=== PATIENT | male | born 1960 ===

== ENCOUNTER 2016-12-29 14:38 | Emergency (ER) | payer MEDICARE ==
[2016-12-29 14:59] VITALS: BP 135/81; PULSE 77; RESP 20; TEMP 98.7; O2SAT 99
--- NOTE | 2016-12-29 15:31 | ED PDOC ---
Lower Extremity Pain/Injury Time Seen by Provider: 12/29/16 15:29 Chief Complaint (Nursing): Lower Extremity Problem/Injury Chief Complaint (Provider): Lower Extremity Problem/Injury History Per: Patient History/Exam Limitations: no limitations Onset/Duration Of Symptoms: Days Current Symptoms Are (Timing): Still Present Severity: Mild Additional Complaint(s): Patient is a 56 year old male who presents to ED for right foot pain and swelling for 1 week. Patient states he is concerned about a possible rat bite due to seeing many rats in his living area but denies remembering an actual bite. Denies trauma or direct injury but admits to scratching the area. Past Medical History Reviewed: Historical Data, Nursing Documentation, Vital Signs Vital Signs: Last Vital Signs Temp 98.7 F 12/29/16 14:56 Pulse 77 12/29/16 14:56 Resp 20 12/29/16 14:56 BP 135/81 12/29/16 14:56 Pulse Ox 99 12/29/16 14:56 - Medical History PMH: Depression, Paranoia, Schizophrenia Denies: Diabetes, Hepatitis, HIV, HTN, Seizures, Sexually Transmitted Disease - Surgical History Surgical History: No Surg Hx - Family History Family History: States: Unknown Family Hx - Living Arrangements Living Arrangements: With Family - Home Medications Home Medications: Ambulatory Orders Medication Instructions Recorded Cephalexin [Keflex] 500 mg PO QID #28 capsule 12/29/16 Naproxen [Naprosyn Tab] 1 tab PO Q8 PRN #21 tab 12/29/16 - Allergies Allergies/Adverse Reactions: Allergies Allergy/AdvReac Type Severity Reaction Status Date / Time No Known Allergies Allergy Verified 12/29/16 14:55 Review of Systems Constitutional: Negative for: Weakness Musculoskeletal: Positive for: Foot Pain. Negative for: Neck Pain, Back Pain, Leg Pain Skin: Negative for: Rash, Bruising Neurological: Negative for: Weakness, Numbness Physical Exam - Reviewed Nursing Documentation Reviewed: Yes Vital Signs Reviewed: Yes - Physical Exam Appears: Positive for: Non-toxic, No Acute Distress Skin: Positive for: Normal Color, Warm Eye Exam: Positive for: Normal appearance Neck: Positive for: Normal Pulses-Dorsalis Pedis (R): 2+ Extremity: Positive for: Normal ROM, Tenderness (tenderness with warmth to right lateral dorsum foot, Ankle and 5th MTP non tenderness, no swelling), Capillary Refill (less then 2 seconds). Negative for: Calf Tenderness, Deformity Neurologic/Psych: Positive for: Alert, Oriented. Negative for: Motor/Sensory Deficits - Laboratory Results Result Diagrams: 12/29/16 15:50 - ECG O2 Sat by Pulse Oximetry: 99 (RA) Pulse Ox Interpretation: Normal - Progress ED Course And Treament: FOOT XRY: NO ACUTE INJURY CBC WNL TETANUS UP TO DATE Medical Decision Making Medical Decision Making: Time: 1525 Initial Impression: Foot pain r/o infection vs fracture Initial Plan: -- Foot Xray Discussed today's findings and results with patient. All questions answered and patient expressed understanding. Stable for discharge. Attestation: Documented by Melvi Joshi acting as a scribe for Aleisha Lopez PA-C. Provider Scribe Attestation: All medical record entries made by the Scribe were at my direction and personally dictated by me. I have reviewed the chart and agree that the record accurately reflects my personal performance of the history, physical exam, medical decision making, and the department course for this patient. I have also personally directed, reviewed, and agree with the discharge instructions and disposition. Disposition - Clinical Impression Clinical Impression: Cellulitis - Patient ED Disposition Is Patient to be Admitted: No - Disposition Referrals: [facility] [Outside] [facility] [Outside] Disposition: Routine/Home Disposition Time: 16:25 Condition: FAIR Additional Instructions: SIGA CON CULLEN MEDICO PARA CHEQUAR PIE EN 2 O 3 [place]. Prescriptions: Cephalexin [Keflex] 500 mg PO QID #28 capsule Naproxen [Naprosyn Tab] 1 tab PO Q8 PRN #21 tab PRN Reason: Pain, Moderate (4-7) Instructions: Cellulitis (ED) Print Language: DIVEHI
[2016-12-29 16:07] LABS: BASO % 0.4 % (0.0-2.0); EOS # 0.1 K/uL (0.0-0.7); EOS % 0.5 % (0.0-4.0); LYMPH # 1.4 K/uL (1.0-4.3); LYMPH % 12.7 % (20.0-40.0); MEAN CELL VOLUME 97.3 fl (80.0-94.0); MEAN CORPUSCULAR HEMOGLOBIN 32.2 pg (27.0-31.0); MEAN CORPUSCULAR HGB CONC 33.1 g/dL (33.0-37.0); MEAN PLATELET VOLUME 7.7 fl (7.2-11.7); MONO % 8.9 % (0.0-10.0); NEUT # 8.7 K/uL (1.8-7.0); NEUT % 77.5 % (50.0-75.0); RED CELL DISTRIBUTION WIDTH 13.4 % (11.5-14.5); WHITE BLOOD COUNT 11.1 K/uL (4.8-10.8)
--- NOTE | 2016-12-29 16:38 | RAD ---
PROCEDURE: Right foot 12/29/2016 s. HISTORY: foot pain COMPARISON: None. FINDINGS: BONES: Current study reveals no evidence of acute displaced fracture nor dislocation. The osseous structures intact. No cortical destructive changes. JOINTS: Minimal hallux valgus deformity with slight prominence of the head of the 1st metatarsal and minimal DJD 1st MTP joint SOFT TISSUES: Questionable mild infiltration changes of the plantar subcutaneous tissues OTHER FINDINGS: None. IMPRESSION: No evidence of acute displaced fracture nor dislocation. . Questionable infiltration changes of the plantar subcutaneous tissues
== END 2016-12-29 16:38 | disposition home or self-care (01) ==
LOC: H.ER 14:38
DX: L03.90 Cellulitis, unspecified (principal)